=== PATIENT | female | born 1990 | race Caucasian/White ===

== ENCOUNTER 2019-11-11 15:29 | Emergency (ER) | payer BC ==
[2019-11-11] MEDS ORDERED: HYDROmorphone 0.5 MG/0.5 ML Syringe IM ONE (16:06)
--- NOTE | 2019-11-11 16:13 | EDM.PDOC ---
ED HPI GENERAL MEDICAL PROBLEM - General Chief Complaint: Laceration Stated Complaint: FELL DOWN STAIRS EARS BLEEDING Time Seen by Provider: 11/11/19 15:55 Source of Information: Reports: Patient, RN Notes Reviewed - History of Present Illness INITIAL COMMENTS - FREE TEXT/NARRATIVE: Patient is a 29-year-old female who presents to the ED for the evaluation of a fall. The patient notes that she was drinking a little bit of wine last night, when she slipped on what she thought was around 15 stairs. Her did witness the event, and states that she did hit her head, but she did not have any sort of loss of consciousness. The notes that she hit the right side of her head on the railing, which caused her ear to bleed. There is dried blood noted to the patient's right ear, the patient's not sure if it is from inside the ear, or superficially. Patient states that she is having little bit of difficulty hearing out of the right ear as well. Patient is alert and oriented at this time, but states she is having some vague memory issues, feeling quite tired, and has been sleeping quite a bit today. has been waking her up every 6 hours your Tylenol ibuprofen, I did give her a couple tablets of hydrocodone/acetaminophen at 8 AM today. The last dose of Tylenol and ibuprofen was around 11 AM. Patient also did take a Xanax prior to coming to the ER, she was very anxious. She states that she is having some generalized myalgias all over, but does not have any bruising, or pain out of proportion. She is able to walk just fine. Headache Pain Score (Numeric/FACES): 8 - Related Data Allergies Allergy/AdvReac Type Severity Reaction Status Date / Time No Known Allergies Allergy Verified 11/11/19 15:49 Home Meds: Home Meds ALPRAZolam [Alprazolam] 1 tab PO DAILY PRN 11/11/19 [History] Escitalopram [Lexapro] 20 mg PO DAILY 11/11/19 [History] Montelukast Sodium 10 mg PO DAILY 11/11/19 [History] Past Medical History Psychiatric History: Reports: Anxiety, Depression Social & Family History - Tobacco Use Smoking Status *Q: Current Every Day Smoker Years of Tobacco use: 10 Packs/Tins Daily: 0.5 - Caffeine Use Caffeine Use: Reports: Coffee, Soda - Alcohol Use Alcohol Use History: Yes - Recreational Drug Use Recreational Drug Use: No ED ROS GENERAL - Review of Systems Review Of Systems: Comprehensive ROS is negative, except as noted in HPI. ED EXAM, SKIN/RASH Exam: See Below Exam Limited By: No Limitations General Appearance: Alert, WD/WN, No Apparent Distress, Anxious Eye Exam: Bilateral Eye: EOMI, Normal Inspection, PERRL Ears: Normal Canal, Hearing Grossly Normal, Normal TMs, Other (The right auricle does have quite a bit of dried blood on it, no obvious laceration noted on initial exam, but will have the nurse try to clean the area and have it reassessed) Nose: Normal Inspection, Normal Mucosa, No Blood Throat/Mouth: Normal Inspection, Normal Lips, Normal Teeth, Normal Gums, Normal Oropharynx, Normal Voice, No Airway Compromise Head: Normocephalic, Other (R ear dried blood) Neck: Normal Inspection, Supple, Non-Tender Respiratory/Chest: No Respiratory Distress, Lungs Clear, Normal Breath Sounds, No Accessory Muscle Use, Chest Non-Tender Cardiovascular: Normal Peripheral Pulses, Regular Rate, Rhythm, No Murmur Extremities: Normal Inspection, Normal Capillary Refill Neurological: Alert, Oriented, CN II-XII Intact (grossly), Normal Cognition, No Motor/Sensory Deficits Psychiatric: Anxious Skin: Warm, Dry, Intact, Normal Color, No Rash ED SKIN PROCEDURES - Laceration/Wound Repair Right Ear Appearance: Superficial, Linear, Clean Distal NVT: Neuro & Vascular Intact, No Tendon Injury Skin Prep: Chlorhexidine (Hibiciens), Saline Exploration/Debridement/Repair: Wound Explored, In a Bloodless Field, Explored to Base, No Foreign Material Found Closed with: Dermabond Lac/Wound length In cm: 3 Sterile Dressing Applied: Nurse Tetanus Status Addressed: Yes Complications: No Course - Vital Signs Last Recorded V/S: Last Vital Signs Temp 97.9 F 11/11/19 15:44 Pulse 89 11/11/19 15:44 Resp 18 11/11/19 15:44 BP 110/75 11/11/19 15:44 Pulse Ox 99 11/11/19 15:44 - Orders/Labs/Meds Meds: Medications Discontinued Medications Generic Name Dose Route Start Last Admin Trade Name Freq PRN Reason Stop Dose Admin Hydromorphone HCl 0.5 mg 11/11/19 16:06 11/11/19 16:10 Dilaudid IM 11/11/19 16:07 0.5 mg ONETIME ONE Administration - Re-Assessments/Exams Free Text/Narrative Re-Assessment/Exam: 11/11/19 16:13 Fall. I do believe the patient has suffered from a concussion in nature regarding her other general symptoms. I will have nursing staff try to clean the patient's eardrops to see what we need to repair if we need to repair anything at all, patient will be given 0.5 mg Dilaudid for initial pain management as patient states she is in quite a bit of pain. Will reassess once the area is clean. Departure - Departure Time of Disposition: 17:22 Disposition: Home, Self-Care 01 Condition: Fair Clinical Impression: Laceration of right ear region Concussion Qualifiers: Encounter type: initial encounter Loss of consciousness presence/duration: without LOC Qualified Code(s): S06.0X0A - Concussion without loss of consciousness, initial encounter - Discharge Information *PRESCRIPTION DRUG MONITORING PROGRAM REVIEWED*: No *COPY OF PRESCRIPTION DRUG MONITORING REPORT IN PATIENT JAMES: No Instructions: Post-Concussion Syndrome, [id number], Sutures, Deidre, or Adhesive Wound Closure, [id number] Referrals: Ran Lam PA-C [Primary Care Provider] - Forms: ED Department Discharge, ED Return to Work/School Form Additional Instructions: You were evaluated in the ED today for your head injury/laceration. These keep the right ear area clean and dry you may cleanse with warm soapy water, do not scrub the area vigorously. The wounds were repaired with Dermabond, which is a medical grade skin adhesive, this will wear off in a few days, but it should allow the wound to heal during this time. You have been clinically diagnosed with a concussion. A concussion can affect how the brain works for a while. It may lead to headaches, changes in alertness, or loss of consciousness. Getting better from a concussion takes days to weeks or even months. You may be irritable, have trouble concentrating, or be unable to remember things. You may also have headaches, dizziness, or blurry vision. These problems will likely recover slowly. You may want to get help from family or friends for making important decisions. You may use acetaminophen (Tylenol) 500mg or 600 mg ibuprofen (Advil/Motrin) Q6H for a headache. You DO NOT need to stay in bed. Light activity around the home is okay. But avoid exercise, lifting weights, or other heavy activity. You may want to keep your diet light if you have nausea and vomiting. Drink fluids to stay hydrated. As long as you have symptoms, avoid sports activities, operating machines, being overly active, doing physical labor. Ask your doctor when you can return to your activities. If symptoms DO NOT go away or are not improving after 2 or 3 weeks, talk to your doctor. Call the doctor if you have: -A stiff neck -Fluid and blood leaking from your nose or ears -A hard time waking up or have become more sleepy -A headache that is getting worse, lasts a long time, or is not relieved by over -the-counter pain relievers -Fever -Vomiting more than 3 times -Problems walking or talking -Changes in speech (slurred, difficult to understand, does not make sense) -Problems thinking straight -Seizures (jerking your arms or legs without control) -Changes in behavior or unusual behavior -Double vision Please return to the ED if your symptoms change or worsen. Sepsis Event Note - Evaluation Sepsis Screening Result: No Definite Risk - Focused Exam Vital Signs: Vital Signs Temp Pulse Resp BP Pulse Ox 11/11/19 15:44 97.9 F 89 18 110/75 99 Date Exam was Performed: 11/11/19 Time Exam was Performed: 17:21
== END 2019-11-11 17:32 | disposition home or self-care (01) ==
LOC: JD.ED 15:29
DX: S06.0X0A Concussion without loss of consciousness, initial encounter (principal); S01.311A Laceration without foreign body of right ear, initial encounter; W19.XXXA Unspecified fall, initial encounter
CPT/HCPCS: 12013; 96372; 99282; J1170; 99283